=== PATIENT | female | born 1990 | race Caucasian/White ===

== ENCOUNTER 2016-09-14 10:15 | Emergency (ER) | payer MEDICAID ==
[~2016-09-14] VITALS: Ht 167.6 cm; Wt 99.5 kg
[2016-09-14] MEDS ORDERED: SODIUM CHLORIDE 0.9% 1,000 ML IV ONE (11:14)
[2016-09-14] MEDS ORDERED: ONDANSETRON 2MG/ML, 2ML ONE (11:26)
[2016-09-14] MEDS ORDERED: HYDROmorphone 1 MG/ML, 1ML ONE ×2 (11:26→13:13)
[2016-09-14] MEDS: HYDROmorphone 1 MG/ML, 1ML IVPush PRN ×2 (11:29→13:15)
[2016-09-14] MEDS ORDERED: SODIUM CHLORIDE 0.9% 1,000ML IVBOLUS ONE (11:30)
[2016-09-14] MEDS ORDERED: SODIUM CHLORIDE FLUSH 10ML SYR IVF ONE (11:30)
[2016-09-14] MEDS ORDERED: ONDANSETRON 2MG/ML, 2ML IVPush ONE (11:30)
[2016-09-14 11:56] LABS: ASPARTATE AMINO TRANSFERASE 6 U/L (15-37); BLOOD UREA NITROGEN 6 mg/dL (7-18)
[2016-09-14] MEDS ORDERED: AZITHROMYCIN 500 MG TABLET ONE ×2 (13:13→13:19)
[2016-09-14] MEDS ORDERED: CEFTRIAXONE PMX 1GM/50ML 50 ML ONE (13:13)
[2016-09-14] MEDS ORDERED: CEFTRIAXONE PMX 1GM/50ML 50 ML IVPB ONE (13:30)
[2016-09-14] MEDS ORDERED: AZITHROMYCIN 500 MG TABLET PO ONE (13:30)
[2016-09-14 15:03] VITALS: BP 150/95
[2016-09-14] MEDS ORDERED: OMNIPAQUE 350 MG/ML, 100ML BOTTLE ONE (16:52)
== END 2016-09-14 15:05 | disposition home or self-care (01) ==
LOC: ED 10:54
DX: N73.0 Acute parametritis and pelvic cellulitis (principal); I10 Essential (primary) hypertension
CPT/HCPCS: 36415; 74177; 76830; 80053; 81003; 84703; 85025; 87040; 87210; 87491; 87591; 87808; 96361; 96365; 96366; 96375; 99285; J0696; J1170; J2405; J7030; Q9967

== ENCOUNTER 2016-10-11 14:10 | Emergency (ER) | payer MEDICAID ==
[~2016-10-11] VITALS: Ht 172.7 cm; Wt 78.0 kg
[2016-10-11] MEDS ORDERED: DIPHENHYDRAMINE 50 MG/ML, 1ML ONE (14:20)
[2016-10-11] MEDS ORDERED: LORazepam 2 MG/ML, 1ML ONE (14:21)
[2016-10-11] MEDS ORDERED: PLEASE ENTER HEIGHT AND WEIGHT MC SCH (14:30)
[2016-10-11] MEDS ORDERED: SODIUM CHLORIDE 0.9% 1,000ML IVBOLUS ONE (14:30)
[2016-10-11] MEDS ORDERED: SODIUM CHLORIDE FLUSH 10ML SYR IVF ONE (14:30)
[2016-10-11] MEDS ORDERED: DIPHENHYDRAMINE 50 MG/ML, 1ML IVPush ONE (14:30)
[2016-10-11] MEDS ORDERED: LORazepam 2 MG/ML, 1ML IVPush ONE (14:30)
[2016-10-11] MEDS ORDERED: BENZTROPINE 1 MG/ML, 2 ML IV ONE (14:30)
[2016-10-11 14:58] LABS: ASPARTATE AMINO TRANSFERASE 7 U/L (15-37); BLOOD UREA NITROGEN 10 mg/dL (7-18)
[2016-10-11 16:42] VITALS: BP 145/89
== END 2016-10-11 16:50 | disposition home or self-care (01) ==
LOC: ED 16:00
DX: R25.8 Other abnormal involuntary movements (principal); T43.595A Adverse effect of other antipsychotics and neuroleptics, initial encounter; I10 Essential (primary) hypertension; Y92.149 Unspecified place in prison as the place of occurrence of the external cause
CPT/HCPCS: 36415; 80053; 82962; 85025; 93005; 96361; 96374; 96375; 99285; J1200; J2060; J7030

== ENCOUNTER 2017-01-01 00:08 | Emergency (ER) | payer MEDICAID ==
[~2017-01-01] VITALS: Ht 170.2 cm; Wt 80.0 kg
[2017-01-01] MEDS ORDERED: KETOROLAC 30 MG/1 ML IVPush ONE (00:30)
[2017-01-01] MEDS ORDERED: KETOROLAC 30 MG/1 ML ONE (00:30)
[2017-01-01] MEDS ORDERED: METRONIDAZOLE PMX 500MG/100ML 100 ML IV ONE (00:30)
[2017-01-01] MEDS ORDERED: SODIUM CHLORIDE 0.9% 1,000ML IVBOLUS ONE (00:30)
[2017-01-01] MEDS ORDERED: DOXYCYCLINE 100 MG in DEXTROSE 5% 250 ML IV ONE (00:30)
[2017-01-01] MEDS ORDERED: METRONIDAZOLE PMX 500MG/100ML 100 ML ONE (01:31)
[2017-01-01] MEDS ORDERED: HYDROmorphone 1 MG/ML, 1ML ONE (01:54)
[2017-01-01] MEDS: HYDROmorphone 1 MG/ML, 1ML IV PRN ×2 (02:01→02:21)
[2017-01-01 02:03] VITALS: BP 136/72
== END 2017-01-01 03:02 | disposition home or self-care (01) ==
LOC: ED 00:50
DX: N73.0 Acute parametritis and pelvic cellulitis (principal); E11.9 Type 2 diabetes mellitus without complications; I10 Essential (primary) hypertension; F17.200 Nicotine dependence, unspecified, uncomplicated
CPT/HCPCS: 36415; 83605; 87040; 96365; 96367; 96375; 96376; 99284; J1170; J1885; J7030; J7060

== ENCOUNTER 2017-02-27 14:51 | Inpatient (IN) | payer MEDICAID, OTHER ==
[~2017-02-27] VITALS: Ht 167.6 cm; Wt 142.0 kg
[2017-02-27] MEDS ORDERED: MORPHINE SULFATE 4 MG/ML, 1ML ONE ×2 (15:28→19:28)
[2017-02-27] MEDS ORDERED: ONDANSETRON 2MG/ML, 2ML ONE (15:28)
[2017-02-27] MEDS ORDERED: CEFTRIAXONE 1,000 MG IM ONE (15:30)
[2017-02-27] MEDS ORDERED: MORPHINE SULFATE 4 MG/ML, 1ML IVPush PRN (15:30)
[2017-02-27] MEDS ORDERED: SODIUM CHLORIDE 0.9% 1,000ML IVBOLUS ONE (15:30)
[2017-02-27] MEDS ORDERED: SODIUM CHLORIDE FLUSH 10ML SYR IVF ONE (15:30)
[2017-02-27] MEDS ORDERED: HYDROmorphone 2 MG/ML, 1ML ONE (16:10)
[2017-02-27 16:29] LABS: HEMATOCRIT 45.2 % (34.6-47.8); HEMOGLOBIN 15.4 g/dL (11.7-16.4); WHITE BLOOD COUNT 9.3 x10^3/uL (3.4-10)
[2017-02-27] MEDS ORDERED: HYDROmorphone 1 MG/ML, 1ML IM ONE (16:30)
[2017-02-27] MEDS ORDERED: ONDANSETRON ODT 4 MG PO ONE (16:30)
[2017-02-27] MEDS ORDERED: CEFTRIAXONE 250 MG ONE (16:32)
[2017-02-27] MEDS ORDERED: AZITHROMYCIN 250 MG TABLET ONE (16:33)
[2017-02-27 16:39] LABS: BLOOD UREA NITROGEN 9 mg/dL (7-18)
[2017-02-27 16:44] LABS: ASPARTATE AMINO TRANSFERASE 6 U/L (15-37)
[2017-02-27] MEDS ORDERED: METRONIDAZOLE PMX 500MG/100ML 100 ML IV ONE (18:30)
[2017-02-27] MEDS ORDERED: DOXYCYCLINE 100 MG in DEXTROSE 5% 250 ML IV SCH (18:30)
[2017-02-27] MEDS ORDERED: CEFOTETAN PMX 2GM/50ML 50 ML IV SCH (18:30)
[2017-02-27] MEDS ORDERED: IBUPROFEN 200 MG TABLET PO PRN (19:00)
[2017-02-27] MEDS ORDERED: ONDANSETRON 2MG/ML, 2ML IVPush PRN (19:00)
[2017-02-27] MEDS ORDERED: OXYcodone/APAP 5/325MG TABLET PO PRN (19:00)
[2017-02-27 20:30] VITALS: BP 155/91
[2017-02-27] MEDS: LACTATED RINGERS 1,000 ML IV SCH (21:06)
[2017-02-27] MEDS: HYDROmorphone 2 MG/ML, 1ML IVPush PRN ×2 (21:20→23:32)
[2017-02-27] MEDS: SENNA/DOCUSATE TABLET PO SCH (23:25)
[2017-02-28 00:37] VITALS: BP 144/89
[2017-02-28] MEDS: CEFOTETAN PMX 2GM/50ML 50 ML IV SCH ×2 (05:55→18:14)
[2017-02-28] MEDS: metroNIDAZOLE 500 MG TABLET PO SCH ×3 (06:30→20:04)
[2017-02-28 07:17] VITALS: BP 144/75
[2017-02-28 08:20] LABS: HEMATOCRIT 44.8 % (34.6-47.8); HEMOGLOBIN 15.1 g/dL (11.7-16.4); WHITE BLOOD COUNT 7.3 x10^3/uL (3.4-10)
[2017-02-28] MEDS: HYDROmorphone 2 MG/ML, 1ML IVPush PRN ×5 (08:32→23:35)
[2017-02-28] MEDS: DOXYCYCLINE 100 MG in DEXTROSE 5% 250 ML IV SCH ×2 (08:32→20:05)
[2017-02-28] MEDS: SENNA/DOCUSATE TABLET PO SCH ×2 (08:33→20:04)
[2017-02-28] MEDS ORDERED: AZITHROMYCIN 500 MG TABLET PO SCH (09:00)
[2017-02-28 11:34] LABS: HIV 1&2 ANTIBODY SCREEN Nonreactive (Nonreactive); HIV-1 p24 ANTIGEN Nonreactive (Nonreactive)
[2017-02-28] MEDS: LACTATED RINGERS 1,000 ML IV SCH (12:09)
[2017-02-28 13:13] LABS: DAU SCREEN DISCLAIMER
[2017-02-28 15:02] VITALS: BP 123/76
[2017-02-28] MEDS ORDERED: NICOTINE 14MG/24 HR PATCH.TD24 TD SCH (18:00)
[2017-02-28 20:33] VITALS: BP 123/71
[2017-03-01] MEDS: LACTATED RINGERS 1,000 ML IV SCH (01:20)
[2017-03-01] MEDS: HYDROmorphone 2 MG/ML, 1ML IVPush PRN ×3 (03:18→09:34)
[2017-03-01 03:46] VITALS: BP 128/86
[2017-03-01 05:47] LABS: HEMATOCRIT 42.4 % (34.6-47.8); HEMOGLOBIN 14.6 g/dL (11.7-16.4); WHITE BLOOD COUNT 8.4 x10^3/uL (3.4-10)
[2017-03-01] MEDS: CEFOTETAN PMX 2GM/50ML 50 ML IV SCH (06:18)
[2017-03-01 07:20] VITALS: BP 128/77
[2017-03-01] MEDS: DOXYCYCLINE 100 MG in DEXTROSE 5% 250 ML IV SCH (07:43)
[2017-03-01] MEDS: SENNA/DOCUSATE TABLET PO SCH (07:43)
[2017-03-01] MEDS: metroNIDAZOLE 500 MG TABLET PO SCH (07:44)
[2017-03-01] MEDS ORDERED: AMOX1TAB61 PO (09:02)
[2017-03-01] MEDS ORDERED: METR500T8 PO (09:03)
[2017-03-01] MEDS ORDERED: DOXY100T10 PO (09:03)
[2017-03-01] MEDS ORDERED: OXYC-302 PO (09:04)
[2017-03-01] MEDS ORDERED: CEFTRIAXONE 1,000 MG IM ONE (09:30)
[2017-03-01] MEDS ORDERED: LIDOCAINE 1%, 2ML IM ONE (09:30)
[2017-03-01] MEDS ORDERED: HYDROmorphone 1 MG/ML, 1ML ONE (09:41)
[2017-03-01 10:30] VITALS: BP 127/79
== END 2017-03-01 10:50 | disposition home or self-care (01) | DRG 758 ==
LOC: ED 16:09 → EDIP 18:39 → 4NOR 19:30
PROVIDERS: ADMIT Specialist; ATTEND Specialist
DX: N73.9 Female pelvic inflammatory disease, unspecified (principal); A54.9 Gonococcal infection, unspecified; A59.01 Trichomonal vulvovaginitis; E11.9 Type 2 diabetes mellitus without complications; F17.210 Nicotine dependence, cigarettes, uncomplicated; F15.90 Other stimulant use, unspecified, uncomplicated; N70.11 Chronic salpingitis; I10 Essential (primary) hypertension; Z80.49 Family history of malignant neoplasm of other genital organs; K59.00 Constipation, unspecified; Z83.3 Family history of diabetes mellitus
CPT/HCPCS: 36415; 76830; 80053; 80307; 81001; 84703; 85025; 86592; 86703; 86780; 86803; 87086; 87210; 87340; 87491; 87591; 87808; 87899; 96365; 96372; 96375; J0696; J1170; J3490; J7060; G0435; G0479; J7030; J7120; S0074

== ENCOUNTER 2019-04-08 22:22 | Emergency (ER) | payer MEDICAID ==
[~2019-04-08] VITALS: Ht 167.6 cm; Wt 109.3 kg
[~2019-04-08 22:22] MED LIST: AMOX1TAB61 PO; DOXY100T23 PO; METR-90 PO; OXYC-302 PO
[2019-04-08 22:24] VITALS: BP 151/87
[2019-04-08] MEDS ORDERED: KETOROLAC 30 MG/1 ML ONE (22:55)
[2019-04-08] MEDS ORDERED: DEXAMETHASONE 4 MG/ML, 5ML ONE (22:55)
[2019-04-08] MEDS ORDERED: KETOROLAC 30 MG/1 ML IM ONE (23:00)
[2019-04-08] MEDS ORDERED: DEXAMETHASONE 4 MG/ML, 1ML PO ONE (23:00)
--- NOTE | 2019-04-08 23:02 | NUR ---
PT C/O SORE THROAT X2DAYS. CURRENTLY SMOKES.
== END 2019-04-08 23:08 | disposition home or self-care (01) ==
LOC: ED 22:50
DX: J02.0 Streptococcal pharyngitis (principal); I10 Essential (primary) hypertension; E11.65 Type 2 diabetes mellitus with hyperglycemia
CPT/HCPCS: 96372; 99283; J1100; J1885